=== PATIENT | female | born 1985 | race African-American/Black ===

== ENCOUNTER 2017-03-15 12:29 | Emergency (ER) | payer MEDICARE, MEDICAID ==
--- NOTE | 2017-03-15 13:52 | UC ---
Respiratory Complaint HPI - HPI Summary HPI Summary: 31 YO FEMALE WITH DMII PRESENTS WITH WAXING AND WANING COUGH AND SORE THROAT X 4 -5 WEEKS PRODUCTIVE COUGH OCCAS SOB AND USES MDI WITH GOOD RELIEF NO CP NO F/C - History of Current Complaint Chief Complaint: UCRespiratory Stated Complaint: COUGH SORE THROAT Hx Obtained From: Patient Hx Last Menstrual Period: 03/01/17 Onset/Duration: Gradual Onset, Lasting Days Timing: Constant Severity Initially: Mild Severity Currently: Mild Pain Intensity: 4 Pain Scale Used: 0-10 Numeric Character: Cough: Productive Associated Signs And Symptoms: Positive: Wheezing, Nasal Congestion Related History: Similar Episode/Dx as: - BRONCHITIS - Allergies/Home Medications Allergies/Adverse Reactions: Allergies Allergy/AdvReac Type Severity Reaction Status Date / Time No Known Allergies Allergy Verified 03/15/17 13:04 Home Medications: Home Medications ARIPiprazole TAB* [Abilify 15 MG TAB*] 15 mg PO DAILY 03/15/17 [History Confirmed 03/15/17] Acetaminophen [Eq Acetaminophen] 500 mg PO Q4H PRN 03/15/17 [History Confirmed 03/15/17] Albuterol HFA INHALER* [Ventolin HFA Inhaler*] 2 puff INH Q4H PRN 03/15/17 [ History Confirmed 03/15/17] Aspirin 81 mg PO DAILY 03/15/17 [History Confirmed 03/15/17] Dulaglutide (NF) [Trulicity (NF)] 1.5 mg SUBCUT WEEKLY 03/15/17 [History Confirmed 03/15/17] Insulin GLARGINE(*) [Lantus(*)] 0 units SUBCUT ONCE 03/15/17 [History Confirmed 03/15/17] metFORMIN* [Glucophage 500 MG TAB *] 500 mg PO DAILY 03/15/17 [History Confirmed 03/15/17] PMH/Surg Hx/FS Hx/Imm Hx Previously Healthy: Yes Endocrine History: Diabetes Cardiovascular History: Hypertension Respiratory History: Asthma, Bronchitis Psychological History: Schizophrenia - Surgical History Surgical History: None - Family History Known Family History: Positive: Unknown - ADOPTED - Social History Alcohol Use: Occasionally Substance Use Type: None Smoking Status (MU): Former Smoker - Immunization History Most Recent Influenza Vaccination: none Review of Systems Constitutional: Negative Skin: Negative Eyes: Negative ENT: Sore Throat, Sinus Congestion Respiratory: Cough Cardiovascular: Negative Gastrointestinal: Negative Genitourinary: Negative Motor: Negative Neurovascular: Negative Musculoskeletal: Negative Neurological: Negative Psychological: Negative Is Patient Immunocompromised?: No All Other Systems Reviewed And Are Negative: Yes Physical Exam Triage Information Reviewed: Yes Appearance: Well-Appearing, No Pain Distress, Well-Nourished, Other: - BMI 65 Vital Signs: Initial Vital Signs Temp 97.8 F 03/15/17 12:59 Pulse 105 03/15/17 12:59 Resp 16 03/15/17 12:59 Pulse Ox 99 03/15/17 12:59 Vital Signs Reviewed: Yes Eyes: Positive: Conjunctiva Clear ENT: Positive: Nasal congestion, TMs normal, Tonsillar swelling, Uvula midline. Negative: Tonsillar exudate, Trismus, Muffled voice, Hoarse voice, Dental tenderness, Sinus tenderness Neck: Positive: Supple, Nontender, No Lymphadenopathy Respiratory: Positive: Lungs clear, Normal breath sounds, No respiratory distress, No accessory muscle use, Wheezing - WITH FORCED EXP ONLY Cardiovascular: Positive: RRR Neurological: Positive: Alert Psychological Exam: Normal UC Diagnostic Evaluation - Laboratory O2 Sat by Pulse Oximetry: 99 - NORMAL/NOT HYPOXIC Respiratory Course/Dx - Differential Dx/Diagnosis Provider Diagnoses: ACUTE BRONCHITIS Discharge - Discharge Plan Condition: Stable Disposition: HOME Prescriptions: Amoxicillin PO (*) [Amoxicillin 875 MG (*)] 875 mg PO BID #20 tab Patient Education Materials: Acute Bronchitis (ED), Tonsillitis (ED) Referrals: Miroslava Hurd MD [Primary Care Provider] - 4 Days (IF NOT BETTER) Additional Instructions: USE INHALER DIRECTED
[2017-03-15 13:54] VITALS: BP 148/92
== END 2017-03-15 13:56 | disposition home or self-care (01) ==
LOC: UCEAST 12:29
DX: J20.9 Acute bronchitis, unspecified (principal); J02.9 Acute pharyngitis, unspecified; E11.9 Type 2 diabetes mellitus without complications; Z79.4 Long term (current) use of insulin; Z79.84 Long term (current) use of oral hypoglycemic drugs; I10 Essential (primary) hypertension; J45.909 Unspecified asthma, uncomplicated; F20.9 Schizophrenia, unspecified; Z79.82 Long term (current) use of aspirin; Z87.891 Personal history of nicotine dependence
CPT/HCPCS: 99202; G0463

== ENCOUNTER 2019-12-30 19:32 | Inpatient (IN) ==
[2019-12-30 20:20] LABS: ABS Basophils 0.1 10^3/ul (0-0.2); ABS Lymphocytes 3.2 10^3/ul (1.0-4.8); ABS Monocytes 0.7 10^3/ul (0-0.8); ABS Neutrophils 4.6 10^3/ul (1.5-7.7); Eosinophil % 0.4 %; Hematocrit 43 % (35-47); Hemoglobin 13.6 g/dL (12.0-16.0); Lymphocyte % 37.2 %; Mean Corpuscular HGB Conc 32 g/dL (31-36); Mean Corpuscular Hemoglobin 24 pg (27-31); Mean Corpuscular Volume 77 fL (80-97); Mean Platelet Volume 8.8 fL (7.4-10.4); Platelet Count 384 10^3/uL (150-450); Red Blood Count 5.57 10^6 /uL (3.70-4.87); Red Cell Distribution Width 16 % (10-15); White Blood Count 8.5 10^3/uL (3.5-10.8)
[2019-12-30 20:36] LABS: ALT 41 U/L (7-52); AST 26 U/L (13-39); Albumin 4.5 g/dL (3.2-5.2); Albumin/Globulin Ratio 1.2 (1-3); Alkaline Phosphatase 76 U/L (34-104); Anion Gap 10 mmol/L (2-11); BUN/Creatinine Ratio 9.5 (8-20); Blood Urea Nitrogen 9 mg/dL (6-24); C Reactive Protein 7.86 mg/L (<8.01); CO2 Carbon Dioxide 24 mmol/L (22-32); Calcium 10.2 mg/dL (8.6-10.3); Chloride 102 mmol/L (101-111); EGFR Non-African American 66.9 (>60); Globulin 3.7 g/dL (2-4); Glucose 365 mg/dL (70-100); Lipase 33 U/L (11.0-82.0); Potassium 3.6 mmol/L (3.5-5.0); Sodium 136 mmol/L (135-145); Total Protein 8.2 g/dL (6.4-8.9)
[2019-12-30] MEDS ORDERED: Insulin GLARGINE 100 un/ml 10 ml VIAL SUBCUT ONE (20:48)
[2019-12-30 20:56] LABS: Acetaminophen < 15 mcg/mL; Alcohol, S < 10 mg/dL (<10); Salicylate < 2.50 mg/dL (<30)
[2019-12-30 21:11] LABS: TSH Ultra Thyroid Stim Horm 1.78 mcIU/mL (0.34-5.60)
[2019-12-30 21:25] LABS: Urine Appearance Clear; Urine Bilirubin Negative (Negative); Urine Blood Negative (Negative); Urine Color Yellow; Urine Glucose 3+(>=500 mg/dL) (Negative); Urine Ketones 1+ (Negative); Urine Nitrite Negative (Negative); Urine Protein Negative (Negative); Urine Specific Gravity 1.039 (1.010-1.030); Urine Urobilinogen Negative (Negative)
[2019-12-30 21:41] LABS: Urine Benzodiazepine Screen None Detected (None Detect); Urine Cannabinoids Screen Presumptive Positive (None Detect); Urine Opiates Screen None Detected (None Detect)
[2019-12-30] MEDS ORDERED: Dextrose 50% Syringe 50 ml 25 GM/50 ML SYRINGE IV PUSH PRN (22:49)
[2019-12-31] MEDS ORDERED: Haloperidol 5 mg/ml SDV IV/IM 5 MG/ML AMP IM ONE (00:14)
[2019-12-31] MEDS ORDERED: LORazepam 2 mg VIAL 1 ml IM ONE (00:14)
[2019-12-31] MEDS ORDERED: diPHENhydraMINE IV 50 MG/ML 1 ml VIAL (BENADRYL) IM ONE (00:14)
[2019-12-31] MEDS ORDERED: LORazepam 2 mg VIAL 1 ml ONE (00:15)
[2019-12-31] MEDS ORDERED: Al Hydrox/Mg Hydrox/Simet LIQ 30 ML UDC PO PRN (03:10)
[2019-12-31] MEDS: Vitamin THERAPEUTIC TAB PO SCH (08:46)
[2019-12-31] MEDS ORDERED: Insulin GLARGINE 100 un/ml 10 ml VIAL SUBCUT SCH (21:00)
[2019-12-31] MEDS: Insulin GLARGINE 100 un/ml 10 ml VIAL SUBCUT SCH (21:57)
[2020-01-01] MEDS ORDERED: Dextrose 50% Syringe 50 ml 25 GM/50 ML SYRINGE IV PUSH PRN (07:02)
[2020-01-01] MEDS: Vitamin THERAPEUTIC TAB PO SCH (08:23)
[2020-01-01] MEDS: Insulin GLARGINE 100 un/ml 10 ml VIAL SUBCUT SCH (20:33)
[2020-01-02 08:10] LABS: HDL Cholesterol 31.1 mg/dL
[2020-01-02] MEDS: Vitamin THERAPEUTIC TAB PO SCH (08:35)
[2020-01-02] MEDS ORDERED: Insulin GLARGINE 100 un/ml 10 ml VIAL SUBCUT SCH (21:00)
[2020-01-03] MEDS: Vitamin THERAPEUTIC TAB PO SCH (08:16)
[2020-01-03 08:25] VITALS: BP 124/71
== END 2020-01-03 13:04 | disposition home or self-care (01) | DRG 885 ==
LOC: ED 19:32 → BSU 12-31 00:21
PROVIDERS: ADMIT Psychiatry & Neurology Psychiatry; ATTEND Psychiatry & Neurology Psychiatry